=== PATIENT | male | born 1980 | race American Indian/Alaskan Native ===

== ENCOUNTER 2019-03-06 22:36 | Emergency (ER) | payer MEDICAID ==
[2019-03-07] MEDS ORDERED: KEPPRA 1,000 MG/NS 0.75% 100ML 1,000 MG/100 ML BAG IV ONE (00:24)
[2019-03-07] MEDS ORDERED: DILANTIN PO ONE (00:26)
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
[2019-03-07 00:55] VITALS: BP 114/74
== END 2019-03-07 02:40 | disposition home or self-care (01) ==
LOC: ED 22:36
DX: G40.909 Epilepsy, unspecified, not intractable, without status epilepticus (principal); F17.200 Nicotine dependence, unspecified, uncomplicated; Z91.013 Allergy to seafood
CPT/HCPCS: 36415; 80185; 96374; 99283; J1953

== ENCOUNTER 2019-04-21 07:00 | Emergency (ER) | payer MEDICAID | END 2019-04-21 08:10 | disposition left against medical advice (07) | LOC: ED 07:00 | DX: M25.511 Pain in right shoulder (principal); Z53.21 Procedure and treatment not carried out due to patient leaving prior to being seen by health care provider ==

== ENCOUNTER 2019-04-26 19:01 | Emergency (ER) | payer MEDICAID ==
--- NOTE | 2019-04-26 20:06 | Event Note ---
ED Screening Note ED Screening Note: had a fall on 04/21/19 c/o right shoulder pain never hurt before PMHx epilepsy no allergies to meds This initial assessment/diagnostic orders/clinical plan/treatment(s) is/are subject to change based on patients health status, clinical progression and re- assessment by fellow clinical providers in the ED. Further treatment and workup at subsequent clinical providers discretion. Patient/guardian urged not to elope from the ED as their condition may be serious if not clinically assessed and managed. Initial orders include: XR of the right shoulder
[2019-04-26 20:08] VITALS: BP 122/87
--- NOTE | 2019-04-26 20:49 | XRay Report ---
RIGHT SHOULDER 3 VIEWS. INDICATION / CLINICAL INFORMATION: right shoulder pain COMPARISON: None available. FINDINGS: BONES / JOINT(S): No acute fracture or subluxation. No significant arthritis. SOFT TISSUES: No significant abnormality. ADDITIONAL FINDINGS: None. Signer Name: Adilson Bishop MD Signed: 04/26/2019 8:45 PM Workstation Name: [id number]
[2019-04-26] MEDS ORDERED: IBUPROFEN PO ONE (21:31)
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
== END 2019-04-26 21:40 | disposition home or self-care (01) ==
LOC: ED 19:01
DX: S43.51XA Sprain of right acromioclavicular joint, initial encounter (principal); Z98.890 Other specified postprocedural states; Z79.899 Other long term (current) drug therapy; W18.30XA Fall on same level, unspecified, initial encounter; Y93.89 Activity, other specified; Y92.89 Other specified places as the place of occurrence of the external cause; Y99.8 Other external cause status
CPT/HCPCS: 99283

== ENCOUNTER 2019-08-07 19:24 | Emergency (ER) | payer MEDICAID ==
--- NOTE | 2019-08-07 20:06 | Emergency Department Report ---
Blank Doc - Documentation Documentation: I had no physical contact with this patient. I assigned myself when he was vis ible on the tracker however, per nursing pt never went into room as he got off the EMS stretcher and signed out AMA.
== END 2019-08-07 19:40 | disposition left against medical advice (07) ==
LOC: ED 19:24
DX: R56.9 Unspecified convulsions (principal); Z53.21 Procedure and treatment not carried out due to patient leaving prior to being seen by health care provider

== ENCOUNTER 2019-11-11 03:52 | Emergency (ER) | payer MEDICAID ==
[2019-11-11 04:03] VITALS: BP 126/87
[2019-11-11] MEDS ORDERED: traMADol 50 MG TAB PO ONE (06:02)
[2019-11-11] MEDS ORDERED: CYCLOBENZAPRINE 10 MG TAB ONE (06:02)
[2019-11-11] MEDS ORDERED: traMADol 50 MG TAB ONE (06:02)
[2019-11-11] MEDS ORDERED: CYCLOBENZAPRINE 10 MG TAB PO ONE (06:02)
== END 2019-11-11 06:38 | disposition left against medical advice (07) ==
LOC: ED 03:52
DX: M54.89 Other dorsalgia (principal); Z53.21 Procedure and treatment not carried out due to patient leaving prior to being seen by health care provider

== ENCOUNTER 2019-11-11 10:27 | Emergency (ER) | payer MEDICAID ==
[2019-11-11] MEDS ORDERED: levETIRAcetam 1000 MG/NS 0.75% 1,000 MG/100 ML BAG IV ONE ×2 (10:39→10:41)
[2019-11-11] MEDS ORDERED: DEXTROSE 50% IN WATER (25GM) 50 ML SYRINGE IV ONE (10:39)
[2019-11-11] MEDS ORDERED: ONDANSETRON 4 MG/2 ML INJ ONE (10:39)
[2019-11-11] MEDS ORDERED: ONDANSETRON 4 MG/2 ML INJ IV ONE (10:42)
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
[2019-11-11 10:52] VITALS: BP 111/60
[2019-11-11] MEDS ORDERED: PHENYTOIN 1,000 MG in SODIUM CHLORIDE 0.9% 250ML 250 ML IV ONE (11:00)
[2019-11-11 11:25] LABS: Basophils % (Auto) 0.2 % (0.0-1.8); Eosinophils # (Auto) 0.1 K/mm3 (0.0-0.4); Hematocrit 44.8 % (35.5-45.6); Hemoglobin 14.7 gm/dl (11.8-15.2); Lymphocytes # (Auto) 0.8 K/mm3 (1.2-5.4); Lymphocytes % (Auto) 11.6 % (13.4-35.0); Mean Corpuscular HGB Conc 33 % (32-34); Mean Corpuscular Volume 91 fl (84-94); Monocytes # (Auto) 0.5 K/mm3 (0.0-0.8); Monocytes % (Auto) 8.2 % (0.0-7.3); Platelet Count 146 K/mm3 (140-440); Red Blood Count 4.92 M/mm3 (3.65-5.03); Red Cell Distribution Width 13.8 % (13.2-15.2)
[2019-11-11 11:47] LABS: BUN/Creatinine Ratio 11; Blood Urea Nitrogen 9 mg/dL (9-20); Calcium 8.9 mg/dL (8.4-10.2); Hemolysis Index 18
[2019-11-11 12:21] LABS: Bacteria,Urine 1+ /HPF (Negative); Bilirubin,Urine NEG (Negative); Blood,Urine NEG (Negative); Color,Urine Straw (Yellow); Mucus,Urine FEW /HPF; Urobilinogen,Urine < 2.0 mg/dL (<2.0)
--- NOTE | 2019-11-11 15:06 | Cat Scan Report ---
CT head without contrast INDICATION : headache. TECHNIQUE: Axial imaging performed from the skull apex through the skull base without the use of con trast. All CT scans at this location are performed using CT dose reduction for ALARA by means of aut omated exposure control. COMPARISON: CT head from 09/03/2018 FINDINGS: Parenchyma: No acute intracranial hemorrhage or parenchymal abnormality. Ventricles: Ventricles are normal in size and appear symmetric. Soft tissues: Soft tissues including the orbits appear normal. Bones: No acute osseous abnormality. Sinuses: Sinuses and mastoid air cells are clear. IMPRESSION: No acute abnormality. Signer Name: Mckinley Almanzar MD Signed: 11/11/2019 3:02 PM Workstation Name: [id number]
--- NOTE | 2019-11-11 15:20 | XRay Report ---
RIGHT SHOULDER 3 VIEWS INDICATION / CLINICAL INFORMATION: R shoulder pain COMPARISON: 04/26/2019. 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 Negative for acute bony injury. Heter otopic ossification/calcification has developed along the undersurface of the distal clavicle. No sig nificant arthritis at the glenohumeral joint. SOFT TISSUES: No significant abnormality. ADDITIONAL FINDINGS: None. Signer Name: Adilson Bishop MD Signed: 11/11/2019 3:16 PM Workstation Name: [id number]
[2019-11-11] MEDS ORDERED: IBUPROFEN 600 MG TAB PO ONE ×2 (15:39→15:43)
== END 2019-11-11 15:45 | disposition home or self-care (01) ==
LOC: ED 10:27
DX: S40.011A Contusion of right shoulder, initial encounter (principal); S09.90XA Unspecified injury of head, initial encounter; R56.9 Unspecified convulsions; F17.200 Nicotine dependence, unspecified, uncomplicated; Z91.013 Allergy to seafood; X58.XXXA Exposure to other specified factors, initial encounter; Y93.89 Activity, other specified; Y92.89 Other specified places as the place of occurrence of the external cause; Y99.8 Other external cause status
CPT/HCPCS: 36415; 70450; 73030; 80048; 81001; 82962; 85025; 87086; 96365; 96368; 96375; 99285; J1165; J1953; J2405; J7050

== ENCOUNTER 2020-06-09 17:52 | Emergency (ER) | payer MEDICAID | END 2020-06-09 18:10 | disposition left against medical advice (07) | LOC: ED 17:52 | DX: G40.909 Epilepsy, unspecified, not intractable, without status epilepticus (principal); Z53.21 Procedure and treatment not carried out due to patient leaving prior to being seen by health care provider ==

== ENCOUNTER 2021-05-15 11:52 | Emergency (ER) | payer MEDICAID | END 2021-05-15 16:00 | disposition left against medical advice (07) | LOC: ED 11:52 | DX: M25.519 Pain in unspecified shoulder (principal); Z53.21 Procedure and treatment not carried out due to patient leaving prior to being seen by health care provider ==

== ENCOUNTER 2021-06-23 15:40 | Emergency (ER) | payer MEDICAID ==
[2021-06-23 15:53] VITALS: BP 136/80
[2021-06-23] MEDS ORDERED: PHENYTOIN 100 MG CAPSULE.ER PO ONE (18:05)
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
[2021-06-23 18:28] LABS: Basophils % (Auto) 0.2 % (0.0-1.8); Eosinophils # (Auto) 0.6 K/mm3 (0.0-0.4); Eosinophils % (Auto) 4.6 % (0.0-4.3); Hematocrit 45.1 % (35.5-45.6); Hemoglobin 15.2 gm/dl (11.8-15.2); Lymphocytes # (Auto) 1.1 K/mm3 (1.2-5.4); Lymphocytes % (Auto) 8.8 % (13.4-35.0); Mean Corpuscular HGB Conc 34 % (32-34); Mean Corpuscular Volume 90 fl (84-94); Monocytes # (Auto) 0.8 K/mm3 (0.0-0.8); Platelet Count 198 K/mm3 (140-440); Red Blood Count 5.02 M/mm3 (3.65-5.03); Red Cell Distribution Width 13.8 % (13.2-15.2)
[2021-06-23 18:51] LABS: Alanine Aminotransferase 12 units/L (7-56); Albumin 4.4 g/dL (3.9-5); BUN/Creatinine Ratio 17; Blood Urea Nitrogen 15 mg/dL (9-20); Calcium 9.4 mg/dL (8.4-10.2); Hemolysis Index 20
== END 2021-06-23 19:04 | disposition home or self-care (01) ==
LOC: ED 15:40
DX: S01.112A Laceration without foreign body of left eyelid and periocular area, initial encounter (principal); T14.8XXA Other injury of unspecified body region, initial encounter; R56.9 Unspecified convulsions; Z91.14 Patient's other noncompliance with medication regimen; R89.2 Abnormal level of other drugs, medicaments and biological substances in specimens from other organs, systems and tissues; Z98.890 Other specified postprocedural states; F17.200 Nicotine dependence, unspecified, uncomplicated; Z91.013 Allergy to seafood; X58.XXXA Exposure to other specified factors, initial encounter; Y93.89 Activity, other specified; Y92.89 Other specified places as the place of occurrence of the external cause; Y99.8 Other external cause status
CPT/HCPCS: 36415; 80053; 80185; 85025; 99283

== ENCOUNTER 2021-07-19 04:07 | Emergency (ER) | payer MEDICAID ==
[2021-07-19] MEDS ORDERED: methylPREDNISolone Sod Succinate 125 MG/2 ML INJ IM ONE (04:39)
[2021-07-19] MEDS ORDERED: IPRATROPIUM/ALBUTEROL SULFATE 3 ML AMPUL.NEB IH ONE (04:39)
[2021-07-19] MEDS ORDERED: ONDANSETRON 4 MG ODT TAB PO ONE (04:39)
[2021-07-19] MEDS ORDERED: ACETAMINOPHEN 500 MG TAB PO ONE (04:39)
[2021-07-19] MEDS ORDERED: IBUPROFEN 600 MG TAB PO ONE (04:40)
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
[2021-07-19 05:47] VITALS: BP 118/77
--- NOTE | 2021-07-20 06:59 | XRay Report ---
CHEST 2 VIEWS INDICATION / CLINICAL INFORMATION: COUGH, WHEEZING STUDY TIME: 0506 COMPARISON: None available. FINDINGS: SUPPORT DEVICES: None. HEART / MEDIASTINUM: No significant abnormality. LUNGS / PLEURA: No significant acute pulmonary or pleural abnormality. No pneumothorax. ADDITIONAL FINDINGS: No significant additional findings. Signer Name: Hamzah Brown MD Signed: 07/20/2021 6:54 AM Workstation Name: [id number]
== END 2021-07-19 07:12 | disposition home or self-care (01) ==
LOC: ED 04:07
DX: J01.90 Acute sinusitis, unspecified (principal); B96.89 Other specified bacterial agents as the cause of diseases classified elsewhere; J06.9 Acute upper respiratory infection, unspecified; J20.9 Acute bronchitis, unspecified; R11.2 Nausea with vomiting, unspecified; R56.9 Unspecified convulsions; Z98.890 Other specified postprocedural states; Z91.013 Allergy to seafood
CPT/HCPCS: 71046; 94640; 96372; 99283; J2930; Q0162

== ENCOUNTER 2021-08-22 23:20 | Emergency (ER) | payer OTHER, MEDICAID ==
[2021-08-22 23:30] VITALS: BP 142/93
[2021-08-22] MEDS ORDERED: ACETAMINOPHEN 325 MG TAB PO ONE (23:45)
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
[2021-08-22] MEDS ORDERED: PHENYTOIN 100 MG CAPSULE.ER PO ONE (23:51)
== END 2021-08-23 01:47 ==
LOC: ED 23:20
DX: G40.909 Epilepsy, unspecified, not intractable, without status epilepticus (principal); Z91.013 Allergy to seafood; Z79.899 Other long term (current) drug therapy; V89.2XXA Person injured in unspecified motor-vehicle accident, traffic, initial encounter; Y93.89 Activity, other specified; Y92.488 Other paved roadways as the place of occurrence of the external cause; Y99.8 Other external cause status
CPT/HCPCS: 99282

== ENCOUNTER 2021-09-21 06:29 | Emergency (ER) | payer MEDICAID ==
[2021-09-21 06:37] VITALS: BP 150/86
[2021-09-21] MEDS ORDERED: HYDROmorphone 1 MG/1 ML INJ IM ONE (08:46)
[2021-09-21] MEDS ORDERED: KETOROLAC 60 MG/2 ML INJ IM ONE (08:46)
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
== END 2021-09-21 09:47 | disposition home or self-care (01) ==
LOC: ED 06:29
DX: G89.18 Other acute postprocedural pain (principal); M79.604 Pain in right leg; Z91.013 Allergy to seafood; Z79.899 Other long term (current) drug therapy
CPT/HCPCS: 96372; 99282; J1170; J1885

== ENCOUNTER 2021-10-01 16:11 | Emergency (ER) | payer MEDICAID ==
[2021-10-01] MEDS ORDERED: oxyCODONE /ACETAMINOPHEN 5-325MG TAB PO ONE (18:34)
[2021-10-01] MEDS ORDERED: cephALEXin 500 MG CAP PO ONE (18:34)
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
== END 2021-10-01 20:05 | disposition home or self-care (01) ==
LOC: ED 16:11
DX: S82.202A Unspecified fracture of shaft of left tibia, initial encounter for closed fracture (principal); S82.402A Unspecified fracture of shaft of left fibula, initial encounter for closed fracture; T84.293A Other mechanical complication of internal fixation device of bones of foot and toes, initial encounter; G89.18 Other acute postprocedural pain; Z91.013 Allergy to seafood; Z79.899 Other long term (current) drug therapy; X58.XXXA Exposure to other specified factors, initial encounter; Y93.89 Activity, other specified; Y92.89 Other specified places as the place of occurrence of the external cause; Y99.8 Other external cause status
CPT/HCPCS: 99283

== ENCOUNTER 2021-10-07 21:55 | Emergency (ER) | payer MEDICAID | END 2021-10-07 22:47 | disposition left against medical advice (07) | LOC: ED 21:55 | DX: Z00.00 Encounter for general adult medical examination without abnormal findings (principal); Z53.21 Procedure and treatment not carried out due to patient leaving prior to being seen by health care provider; W18.39XA Other fall on same level, initial encounter; Y93.89 Activity, other specified; Y92.89 Other specified places as the place of occurrence of the external cause; Y99.8 Other external cause status ==

== ENCOUNTER 2021-10-09 07:15 | Observation (INO) | payer MEDICAID ==
[~2021-10-09 07:15] MED LIST: BACTERIOSTATIC SODIUM CHLORIDE 0.9% 30 ML VIAL INFILTRATI ONE; ceFAZolin/STERILE WATER 2 GM/20 ML SYRINGE IV NR
[2021-10-09] MEDS: LACTATED RINGERS 1,000 ML IV SCH ×2 (07:24→20:06)
[2021-10-09] MEDS ORDERED: ONDANSETRON 4 MG/2 ML INJ IV PRN (07:35)
[2021-10-09] MEDS ORDERED: HYDROmorphone 1 MG/1 ML INJ IV PRN (07:35)
[2021-10-09] MEDS ORDERED: fentaNYL 100 MCG/2 ML INJ IV NR (07:57)
[2021-10-09] MEDS ORDERED: MIDAZOLAM 2 MG/2 ML INJ IV NR (08:00)
--- NOTE | 2021-10-09 08:00 | Anesthesia Consultation ---
Anesthesia Consult and Med Hx - Airway Anesthetic Teeth Evaluation: Good ROM Head & Neck: Adequate Mental/Hyoid Distance: Adequate Mallampati Class: Class II Intubation Access Assessment: Good - Pre-Operative Health Status ASA Pre-Surgery Classification: ASA2 Proposed Anesthetic Plan: General Nerve Block: Pop - Pulmonary Hx Smoking: Yes (1-2 CIGARS PER DAY/ DAILY THC) Hx Asthma: No Hx Respiratory Symptoms: No COPD: No Hx Pneumonia: No Hx Sleep Apnea: Yes (DX SLEEP APNEA , NO CPAP) - Cardiovascular System Hx Hypertension: No Hx Heart Attack/AMI: No - Central Nervous System Hx Seizures: Yes CVA: No - Endocrine Hx Renal Disease: No Hx End Stage Renal Disease: No Hx Liver Disease: No Hx Insulin Dependent Diabetes: No Hx Non-Insulin Dependent Diabetes: No Hx Thyroid Disease: No - Hematic Hx Anemia: No - Other Systems Hx Substance Use: Yes (MARIJUANA2-3X PER DAY) Hx Cancer: No Hx Obesity: No - Additional Comments Anesthesia Medical History Comments: Was here [id number]
--- NOTE | 2021-10-09 08:00 | Anesthesia Day of Surgery ---
Anesthesia Day of Surgery - Day of Surgery Patient Examined: Yes Patient H&P Reviewed: Yes Patient is NPO: Yes
[2021-10-09] MEDS ORDERED: MIDAZOLAM 5 MG/5 ML INJ MDV IV ONE (08:01)
[2021-10-09] MEDS ORDERED: BUPIVACAINE/PF (0.25%) 2.5 MG/ML 30 ML VIAL INFILTRATI ONE (08:02)
[2021-10-09] MEDS ORDERED: dexAMETHasone 4 MG/ML VIAL ONE (08:02)
[2021-10-09] MEDS ORDERED: BUPIVACAINE/PF (0.5%) 5 MG/1 ML 30 ML VIAL INFILTRATI ONE (08:02)
[2021-10-09] MEDS ORDERED: LIDOCAINE MPF (2%) 20 MG/1 ML VIAL 5 ML ONE (10:03)
[2021-10-09] MEDS ORDERED: fentaNYL 100 MCG/2 ML INJ ONE ×2 (10:08→12:00)
[2021-10-09] MEDS ORDERED: propofoL 200 MG/20 ML VIAL IV ONE (10:08)
[2021-10-09] MEDS ORDERED: ONDANSETRON 4 MG/2 ML INJ ONE (10:33)
[2021-10-09] MEDS ORDERED: dexAMETHasone 20 MG/5 ML VIAL ONE (10:33)
[2021-10-09] MEDS ORDERED: SODIUM CHLORIDE 0.9% IRR 1,500 ML BOTTLE IR ONE (10:51)
[2021-10-09] MEDS ORDERED: PHENYLEPHRINE/NS 1,000 MCG/10 ML SYRINGE (OR USE) IV ONE (10:59)
[2021-10-09] MEDS ORDERED: WATER FOR IRRIG STERILE 1,500 ML BOTTLE IR ONE (14:12)
[2021-10-09] MEDS: HYDROmorphone 1 MG/1 ML INJ IV PRN ×4 (14:32→18:58)
--- NOTE | 2021-10-09 14:34 | Procedure Note ---
Date of procedure: 10/09/21 Pre-op diagnosis: Open fracture right tib-fib Post-op diagnosis: same Procedure: Removal of external fixator followed by open reduction internal fixation right tibia and fibula Procedure The patient was brought to the OR and placed in the OR table in supine position following induction with MAC anesthesia. Portions of the external fixator was removed that being the kickstand apparatus, the patient's right lower extremity was then prepped and draped in the usual sterile manner. A timeout procedure was done to identify the patient and the correct operative site. The leg was then elevated for approximately 1 minute followed by inflation of the pneumatic tourniquet to 300 mmHg. Attention was turned to the fibular fracture with the external fixator still intact a lateral incision was made along the distal fibula this is then taken down sharply through skin subcu the fracture was identified there was early callus formation which was then taken down using combination of rongeurs and curettes patient was noted to have slight overriding of about 2 to 3 mm using a small sawblade the ends were approximated and a seven hole plate applied with screws of various lengths and AP and lateral views obtained showing good reduction of the fibula fracture.. Next the anteromedial incision was made along the distal 3rd portion of the tibia this is then taken down sharply through skin subcu which brought us upon the fracture site patient was noted to have moderate amount of comminution noted in the distal tibia using combination of curette and rongeurs the early callus formation was debrided from the fracture ends the fracture fragments were then reapproximated and held by way of a bone clamp interfragmentary screw fixation was used on the most proximal butterfly fragment this was then followed by application of the and to lateral locked plate the plate was stabilized initially with a a K wire AP and lateral films were obtained showing good reduction of the fracture and placement of the hardware following this screws of various lengths were used to stabilize the antromedial plate care was taken to reduce the posterior fragment next the wound was copiously irrigated due to the extensive comminution noted earlier allograft bone was then packed within the wound to aid in fracture healing next the wound was copiously irrigated and was closed in a standard routine fashion postop dressings were applied patient tolerated the procedure there were no complications he was sent to postanesthesia recovery in a stable condition Anesthesia: BRITTNEE CELESTIN, regional Surgeon: OSVALDO LUIS (Tej Akers. 1st assist) Estimated blood loss: minimal Pathology: none Condition: stable Disposition: PACU
--- NOTE | 2021-10-09 15:44 | XRay Report ---
INTRAOPERATIVE FLUOROSCOPY: RIGHT ANKLE INDICATION / CLINICAL INFORMATION: RT TIB/FIB FX/ TIB/FIB PLATE AND SCREWS. TECHNIQUE: Intraoperative spot images were obtained during the procedure. FINDINGS: Patient is status post plate screw fixation of the right distal tibia for a comminuted fracture. Hard graham appears well seated. Fluoroscopy Time: 38 seconds. Fluoroscopy Images: 3. Signer Name: Justin Peters DO Signed: 10/09/2021 3:40 PM Workstation Name: [id number]
--- NOTE | 2021-10-09 17:11 | Post Anesthesia Evaluation ---
- Post Anesthesia Evaluation Patient Participated: Yes Airway Patent: Yes Stable Respiratory Function: Yes Nausea/Vomiting: No Temp > 96.8F: Yes Pain Manageable: Yes Adequeate Hydration: Yes Anesthesia Complications: No Block Receding Appropriately: Yes Patient on Ventilator: No
[2021-10-09] MEDS: MORPHINE 2 MG/1 ML INJ IV PRN (20:55)
[2021-10-10] MEDS: MORPHINE 4 MG/1 ML INJ IV PRN ×5 (02:12→22:04)
[2021-10-10] MEDS: KETOROLAC 30 MG/1 ML INJ IV PRN ×3 (04:02→19:40)
[2021-10-10] MEDS: LACTATED RINGERS 1,000 ML IV SCH ×2 (04:06→14:00)
[2021-10-10] MEDS: MORPHINE 2 MG/1 ML INJ IV PRN (05:17)
[2021-10-10] MEDS: ACETAMINOPHEN 325 MG TAB PO PRN (20:24)
[2021-10-11] MEDS: MORPHINE 4 MG/1 ML INJ IV PRN ×4 (02:05→21:37)
[2021-10-11] MEDS: LACTATED RINGERS 1,000 ML IV SCH ×3 (02:05→21:41)
[2021-10-11] MEDS: ACETAMINOPHEN 325 MG TAB PO PRN (03:50)
[2021-10-11] MEDS: KETOROLAC 30 MG/1 ML INJ IV PRN ×2 (05:39→11:55)
--- NOTE | 2021-10-11 08:46 | XRay Report ---
CHEST 1 VIEW INDICATION: fever and cough. COMPARISON: 07/19/2021 FINDINGS: Support devices: None. Heart: Normal. Lungs/Pleura: No acute pulmonary or pleural findings. IMPRESSION: 1. No acute findings. Signer Name: Ramon Rollins MD Signed: 10/11/2021 8:41 AM Workstation Name: [id number]
[2021-10-11 11:23] LABS: Bilirubin,Urine NEG (Negative); Blood,Urine NEG (Negative); Color,Urine Yellow (Yellow); Mucus,Urine 3+ /HPF; Protein,Urine <15 mg/dL mg/dL (Negative); Urobilinogen,Urine < 2.0 mg/dL (<2.0)
[2021-10-12] MEDS: MORPHINE 4 MG/1 ML INJ IV PRN ×5 (01:24→21:02)
[2021-10-12] MEDS: KETOROLAC 30 MG/1 ML INJ IV PRN (11:00)
[2021-10-13] MEDS: KETOROLAC 30 MG/1 ML INJ IV PRN ×3 (00:04→23:43)
[2021-10-13] MEDS: MORPHINE 4 MG/1 ML INJ IV PRN ×3 (04:47→21:37)
[2021-10-13] MEDS: MORPHINE 2 MG/1 ML INJ IV PRN (17:27)
[2021-10-14] MEDS: MORPHINE 4 MG/1 ML INJ IV PRN (03:22)
[2021-10-14] MEDS: MORPHINE 2 MG/1 ML INJ IV PRN ×3 (08:40→17:40)
--- NOTE | 2021-10-14 18:45 | Discharge Summary ---
Providers - Providers Date of Admission: 10/09/21 14:28 Date of discharge: 10/14/21 Attending physician: OSVALDO LUIS MD 10/09/21 14:28 Consult to Case Management [CONS] Routine Services Needed at Discharge: Other Notified:: Yes Phone number called:: [phone] Additional Physician Instructions: Assess Discharge needs. Physical Therapy Evaluation and Treat [CONS] Routine Comment: Reason For Exam: Eval and treat Weight bearing status?: Toe touch Assistive devices?: Yes If so list: Crutches 10/14/21 15:39 Physical Therapy Evaluation and Treat [CONS] Routine Comment: Reason For Exam: Outpatient Physical Therapy Primary care physician: [employer]EARCH[facility] Hospitalization Condition: Stable Hospital course: Following admission he was taken to the operating room where the external fixator was removed and plate fixation applied to both fibular and tibial fracture segments. Post op admitted for pain management and physical therapy evaluation. Unfortunately patient lost to follow up for several days in the hospital due my own health issues requiring admission to other healthcare facility. Eventually I was notified and ordered discharge for this patient. He will be f/u as outpatient in our office 1-2 wks Disposition: 01 HOME / SELF CARE / HOMELESS Final Discharge Diagnosis (Prints w/discharge instructions): open fracture right leg, s/p ORIF right tibia and fibular Core Measure Documentation - Palliative Care Palliative Care/ Comfort Measures: Not Applicable - Core Measures Any of the following diagnoses?: none - VTE Discharge Requirements Deep Vein Thrombosis/Pulmonary Embolism Present on Admission: No Has pt received <5 days of overlap therapy or INR<2.0: No Anticoagulant overlap therapy prescribed at discharge: No Contraindication No Overlap Therapy order at DC: Medical Contraindication - Acute MT Discharge Requirements Aspirin at discharge: No Reason for no aspirin on DC: Medical contraindication - Heart Failure Discharge Requirements WILMAN/ARB for LVSD if EF <40%: No Reason for no WILMAN/ARB: Medical contraindication - Stroke Discharge Requirements Statin for LDL = or >70 mg/dl on DC: Not Applicable Exam - Constitutional Vitals: Temp Pulse Resp BP Pulse Ox 98.8 F 77 18 105/69 98 10/14/21 04:40 10/14/21 04:40 10/14/21 04:40 10/14/21 04:40 10/14/21 17:50 Plan Activity: advance as tolerated Weight Bearing Status: Partial Weight Bearing Diet: regular Wound: keep clean and dry Special Instructions: physical therapy Durable Medical Equipment Needed Upon Discharge: Crutches Follow up with: PRIMARY CARE, [Primary Care Provider] - 7 Days Prescriptions: cephALEXin [Keflex] 500 mg PO Q12HR #20 cap oxyCODONE /ACETAMINOPHEN [Percocet 5/325] 1 tab PO Q6HR PRN #24 tablet PRN Reason: Pain
[2021-10-14 18:49] VITALS: BP 113/76
== END 2021-10-14 19:43 | disposition home or self-care (01) ==
LOC: OR 07:15 → 4A 14:28 → 3A 10-11 20:40
PROVIDERS: ADMIT Orthopaedic Surgery; ATTEND Orthopaedic Surgery
DX: U07.1 COVID-19 (principal); S82.251A Displaced comminuted fracture of shaft of right tibia, initial encounter for closed fracture; M25.571 Pain in right ankle and joints of right foot; F17.210 Nicotine dependence, cigarettes, uncomplicated; Z79.899 Other long term (current) drug therapy; Z98.890 Other specified postprocedural states; W01.0XXA Fall on same level from slipping, tripping and stumbling without subsequent striking against object, initial encounter; Y93.02 Activity, running; Y92.488 Other paved roadways as the place of occurrence of the external cause; Y99.8 Other external cause status
CPT/HCPCS: 27758; 36415; 64450; 71045; 73600; 81001; 87040; 87086; 96374; 96375; 96376; 97162; 99406; C1713; G0378; J0690; J1100; J1170; J1885; J2250; J2270; J2405; J2704; J3010; J3490; J7120; U0003; J2370

== ENCOUNTER → 2021-10-20 | Emergency (ER) | payer MEDICAID | LOC: ED 17:44 | DX: M25.571 Pain in right ankle and joints of right foot (principal); Z53.21 Procedure and treatment not carried out due to patient leaving prior to being seen by health care provider ==

== ENCOUNTER 2021-10-21 06:38 | Emergency (ER) | payer MEDICAID ==
[2021-10-21 06:42] VITALS: BP 120/86
[2021-10-21] MEDS ORDERED: HYDROcodone/ACETAMINOPHEN 5-325 MG TAB PO ONE (10:38)
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
--- NOTE | 2021-10-21 11:20 | XRay Report ---
Right ankle 3 views INDICATION: Postop FINDINGS: Postoperative changes with hardware in place within the tibia and fibula. Comminuted fractu re deformities within the distal tibia are noted. No significant callus formation or healing is seen in this time. Diffuse soft tissue swelling. Right foot 3 views INDICATION: Pain FINDINGS: MTP joints appear normal. Midfoot alignment appears normal. No displaced fracture. Signer Name: Eric Stephen MD Signed: 10/21/2021 11:16 AM Workstation Name: [id number]
== END 2021-10-21 12:20 | disposition home or self-care (01) ==
LOC: ED 06:38
DX: G89.18 Other acute postprocedural pain (principal); Z91.013 Allergy to seafood
CPT/HCPCS: 99283

== ENCOUNTER 2021-12-17 12:44 | Outpatient (CLI) | payer MEDICAID ==
--- NOTE | 2021-12-17 16:46 | XRay Report ---
RIGHT ANKLE 3 VIEW(S) INDICATION / CLINICAL INFORMATION: RIGHT ANKLE PAIN COMPARISON: 10/21/21 FINDINGS: BONES / JOINT(S): Anterior side plate fixation of comminuted distal right tibia fracture and lateral side plate fixation of distal fibular shaft fracture appear unchanged. There has been interval minima l development of internal callus formation. Extruded fracture fragment posterior to the distal tibia is unchanged. No acute osseous abnormality. Mild tibiotalar joint space narrowing especially laterall y. SOFT TISSUES: Mild bimalleolar ankle soft tissue swelling. ADDITIONAL FINDINGS: None. IMPRESSION: 1. Minimal interval callus formation at the site of distal tibial and fibular fracture status post si deplate fixation. Signer Name: Rose Elliott MD Signed: 12/17/2021 4:42 PM Workstation Name: [email or web address]
--- NOTE | 2021-12-17 16:47 | XRay Report ---
LEFT TIBIA-FIBULA 2 VIEW(S) INDICATION / CLINICAL INFORMATION: S82.251 leg pain. COMPARISON: None available. FINDINGS: BONES / JOINT(S): No acute fracture or subluxation. No significant arthritis. SOFT TISSUES: No significant abnormality. ADDITIONAL FINDINGS: None. Signer Name: Rose Elliott MD Signed: 12/17/2021 4:42 PM Workstation Name: [email or web address]
== END 2021-12-17 12:45 | disposition home or self-care (01) ==
LOC: XRAY 12:44
PROVIDERS: ATTEND Orthopaedic Surgery
DX: S82.251A Displaced comminuted fracture of shaft of right tibia, initial encounter for closed fracture (principal); M79.89 Other specified soft tissue disorders; M79.604 Pain in right leg; X58.XXXA Exposure to other specified factors, initial encounter; Y93.89 Activity, other specified; Y92.89 Other specified places as the place of occurrence of the external cause

== ENCOUNTER 2021-12-24 09:39 | Outpatient (CLI) | payer MEDICAID ==
[2021-12-24] MEDS ORDERED: LIDOCAINE (4%) 40 MG/ML TOPICAL SOLN 50 ML BOTTLE TP ONE (10:33)
== END 2021-12-24 09:40 | disposition home or self-care (01) ==
LOC: WOUND 09:39
PROVIDERS: ATTEND Surgery
DX: S81.801A Unspecified open wound, right lower leg, initial encounter (principal); F41.9 Anxiety disorder, unspecified; F32.A Depression, unspecified; F17.200 Nicotine dependence, unspecified, uncomplicated; F12.90 Cannabis use, unspecified, uncomplicated; Z79.899 Other long term (current) drug therapy; W17.2XXA Fall into hole, initial encounter; Y93.89 Activity, other specified; Y92.89 Other specified places as the place of occurrence of the external cause; Y99.8 Other external cause status

== ENCOUNTER 2022-01-07 11:03 | Outpatient (CLI) | payer MEDICAID ==
[2022-01-07] MEDS ORDERED: LIDOCAINE (4%) 40 MG/ML TOPICAL SOLN 50 ML BOTTLE TP ONE ×2 (14:00→18:35)
== END 2022-01-07 11:04 | disposition home or self-care (01) ==
LOC: WOUND 11:03
PROVIDERS: ATTEND Surgery
DX: S81.801D Unspecified open wound, right lower leg, subsequent encounter (principal); F41.9 Anxiety disorder, unspecified; F32.A Depression, unspecified; F17.200 Nicotine dependence, unspecified, uncomplicated; F12.90 Cannabis use, unspecified, uncomplicated; Z79.899 Other long term (current) drug therapy; Z90.49 Acquired absence of other specified parts of digestive tract; W17.2XXD Fall into hole, subsequent encounter

== ENCOUNTER 2022-01-09 12:27 | Outpatient (CLI) | payer MEDICAID ==
--- NOTE | 2022-01-09 14:44 | XRay Report ---
Right leg-4 views INDICATION: PAIN IN LOWER LEG. COMPARISON: Right ankle series from 12/17/2021 IMPRESSION: Comminuted distal tibial diametaphyseal and distal fibular diaphyseal fractures are dowd sfixed by malleable plates with satisfactory alignment; however, there is incomplete healing with at least 50% residual fracture lucency. There is some internal callus formation since the November exam. There is also persistent inferomedial talar tilt and mild surrounding soft tissue swelling. Underly ing mild degenerative changes are present in the hindfoot, midfoot, and in the knee. Signer Name: Mckinley Almanzar MD Signed: 01/09/2022 2:40 PM Workstation Name: [id number]
== END 2022-01-09 12:28 | disposition home or self-care (01) ==
LOC: XRAY 12:27
PROVIDERS: ATTEND Orthopaedic Surgery
DX: S82.251A Displaced comminuted fracture of shaft of right tibia, initial encounter for closed fracture (principal); M79.89 Other specified soft tissue disorders; M19.071 Primary osteoarthritis, right ankle and foot; X58.XXXA Exposure to other specified factors, initial encounter; Y93.89 Activity, other specified; Y92.89 Other specified places as the place of occurrence of the external cause; Y99.8 Other external cause status

== ENCOUNTER 2022-01-14 17:46 | Emergency (ER) | payer MEDICAID ==
[2022-01-14 18:20] VITALS: BP 118/88
== END 2022-01-14 20:00 | disposition left against medical advice (07) ==
LOC: ED 17:46
DX: R11.2 Nausea with vomiting, unspecified (principal); Z53.21 Procedure and treatment not carried out due to patient leaving prior to being seen by health care provider

== ENCOUNTER → 2022-01-14 | Emergency (ER) | payer MEDICAID | LOC: ED 09:14 | DX: R10.9 Unspecified abdominal pain (principal); R11.2 Nausea with vomiting, unspecified; Z53.21 Procedure and treatment not carried out due to patient leaving prior to being seen by health care provider ==

== ENCOUNTER 2022-01-21 12:58 | Outpatient (CLI) | payer MEDICAID ==
[2022-01-21] MEDS ORDERED: SILVER NITRATE APPLICATOR 1 EA TP SCH (13:22)
[2022-01-21] MEDS ORDERED: LIDOCAINE (4%) 40 MG/ML TOPICAL SOLN 50 ML BOTTLE TP SCH (14:00)
== END 2022-01-21 12:59 | disposition home or self-care (01) ==
LOC: WOUND 12:58
PROVIDERS: ATTEND Surgery
DX: S81.801D Unspecified open wound, right lower leg, subsequent encounter (principal); S81.801A Unspecified open wound, right lower leg, initial encounter; S81.802A Unspecified open wound, left lower leg, initial encounter; F17.200 Nicotine dependence, unspecified, uncomplicated; F12.90 Cannabis use, unspecified, uncomplicated; Z79.899 Other long term (current) drug therapy; Z90.49 Acquired absence of other specified parts of digestive tract; W17.2XXD Fall into hole, subsequent encounter; X58.XXXA Exposure to other specified factors, initial encounter; Y93.89 Activity, other specified; Y92.89 Other specified places as the place of occurrence of the external cause; Y99.8 Other external cause status
CPT/HCPCS: 17250

== ENCOUNTER 2022-02-14 05:51 | Observation (INO) | payer MEDICAID ==
[2022-02-14] MEDS ORDERED: GABAPENTIN 300 MG CAP PO SCH (06:00)
[2022-02-14] MEDS ORDERED: MIDAZOLAM 2 MG/2 ML INJ IV SCH (06:00)
[2022-02-14] MEDS ORDERED: ACETAMINOPHEN 500 MG TAB PO SCH (06:00)
[2022-02-14] MEDS ORDERED: LACTATED RINGERS 1,000 ML IV SCH (06:00)
[2022-02-14] MEDS ORDERED: LIDOCAINE PF 100 MG/5 ML (CARDIAC SYRINGE) IV ONE (07:24)
[2022-02-14] MEDS ORDERED: ONDANSETRON 4 MG/2 ML INJ ONE (07:24)
[2022-02-14] MEDS ORDERED: fentaNYL 100 MCG/2 ML INJ ONE (07:24)
[2022-02-14] MEDS ORDERED: dexAMETHasone 20 MG/5 ML VIAL ONE (07:24)
[2022-02-14] MEDS ORDERED: propofoL 200 MG/20 ML VIAL IV ONE (07:25)
--- NOTE | 2022-02-14 07:27 | Anesthesia Consultation ---
Anesthesia Consult and Med Hx Date of service: 02/14/22 - Airway Anesthetic Teeth Evaluation: Good ROM Head & Neck: Adequate Mental/Hyoid Distance: Adequate Mallampati Class: Class I Intubation Access Assessment: Probably Good - Pre-Operative Health Status ASA Pre-Surgery Classification: ASA3 Proposed Anesthetic Plan: General - Pulmonary Hx Smoking: Yes Hx Respiratory Symptoms: No - Cardiovascular System Hx Hypertension: No Hx Heart Attack/AMI: No - Central Nervous System Hx Seizures: Yes (will give home dose keppra in preop) CVA: No - Endocrine Hx Renal Disease: No Hx Liver Disease: No Hx Insulin Dependent Diabetes: No Hx Non-Insulin Dependent Diabetes: No Hx Thyroid Disease: No - Hematic Hx Anemia: No - Other Systems Hx Substance Use: Yes (THC) - Additional Comments Anesthesia Medical History Comments: No hx anesthetic complications.
--- NOTE | 2022-02-14 07:28 | Anesthesia Day of Surgery ---
Anesthesia Day of Surgery - Day of Surgery Patient Examined: Yes Patient H&P Reviewed: Yes Patient is NPO: Yes
[2022-02-14] MEDS ORDERED: ceFAZolin/Water 2 GM/20 ML 2 GM/20 ML SYRINGE IV NR (08:00)
[2022-02-14] MEDS ORDERED: oxyCODONE /ACETAMINOPHEN 5-325MG TAB PO PRN (08:00)
[2022-02-14] MEDS ORDERED: HYDROmorphone 1 MG/1 ML INJ IV PRN (08:00)
[2022-02-14] MEDS ORDERED: levETIRAcetam 500 MG TAB PO SCH (08:00)
[2022-02-14] MEDS ORDERED: ePHEDrine SULFATE 50 MG/1 ML INJ ONE (08:34)
[2022-02-14] MEDS ORDERED: BUPIVACAINE/PF (0.5%) 5 MG/1 ML 30 ML VIAL INFILTRATI ONE ×2 (08:37→08:44)
[2022-02-14] MEDS ORDERED: KETOROLAC 30 MG/1 ML INJ ONE (09:21)
[2022-02-14] MEDS ORDERED: methylPREDNISolone ACETATE 40 MG/1 ML INJ ONE ×2 (09:39)
[2022-02-14] MEDS ORDERED: LIDOCAINE (2%) 20 MG/1 ML VIAL 20 ML MDV INFILTRATI ONE (09:40)
[2022-02-14] MEDS ORDERED: KETOROLAC 30 MG/1 ML INJ IV PRN (09:46)
[2022-02-14] MEDS ORDERED: SODIUM CHLORIDE 0.9% IRR 1,500 ML BOTTLE IR ONE (09:46)
--- NOTE | 2022-02-14 09:51 | Procedure Note ---
Date of procedure: 02/14/22 Pre-op diagnosis: open tib-fib fracture with subsequent chronic osteomyelitis left leg/ankle Post-op diagnosis: same Procedure: Debridement and irrigation left leg with application wound matrix Procedure The patient was brought to the OR and placed on the OR table, following intubation the patient's left lower extremity was prepped and draped in usual sterile manner. A time-out procedure done to identify the patient and the leg to be operated on. The leg was elevated and the tourniquet inflated to 300mm mercury. the leg noted to have chronic openning over fracture site with exposed bone, this area was then debrided using combination of curettes and rongeurs, one distal screw removed with remaining screws appearing intact. Following copious irrigation the wound matrix was applied and secured with 3-0 Vicryl, followed adaptic and vasoline jelly, ABD pads and cast padding used to apply pressure onto wound matrix. Next the patient was extubated and taken to PACU in stable condition Anesthesia: GETA Surgeon: OSVALDO LUIS Estimated blood loss: minimal Pathology: list (bone and soft tissue sent to lab/microbiology) Specimen disposition: to lab Condition: stable Disposition: PACU
--- NOTE | 2022-02-14 12:01 | Post Anesthesia Evaluation ---
- Post Anesthesia Evaluation Patient Participated: Yes Airway Patent: Yes Stable Respiratory Function: Yes Nausea/Vomiting: No Temp > 96.8F: Yes Pain Manageable: Yes Adequeate Hydration: Yes Anesthesia Complications: No
[2022-02-14] MEDS: MORPHINE 2 MG/1 ML INJ IV PRN (15:43)
[2022-02-14] MEDS: MORPHINE 4 MG/1 ML INJ IV PRN (20:33)
[2022-02-15] MEDS: MORPHINE 4 MG/1 ML INJ IV PRN ×2 (01:19→06:06)
[2022-02-15 05:29] VITALS: BP 135/80
[2022-02-15] MEDS: MORPHINE 2 MG/1 ML INJ IV PRN (10:45)
--- NOTE | 2022-02-15 12:44 | Progress Note ---
Assessment and Plan s/p debridement left distal tibia doing well will dc to home, f/u in 1 wk Subjective Date of service: 02/15/22 Interval history: c/o incisional pain otherwise ok... Objective Vital signs: Vital Signs - 12hr 02/15/22 05:26 Temperature 99.4 F Pulse Rate 69 Respiratory 20 Rate Blood Pressure 135/80 O2 Sat by Pulse 95 Oximetry Incision: clean and dry Weight bearing status: as tolerated
== END 2022-02-15 15:01 | disposition home or self-care (01) ==
LOC: INTOOBSV 05:51 → 3A 05:51
PROVIDERS: ADMIT Orthopaedic Surgery; ATTEND Orthopaedic Surgery
DX: S82.202H Unspecified fracture of shaft of left tibia, subsequent encounter for open fracture type I or II with delayed healing (principal); S82.402H Unspecified fracture of shaft of left fibula, subsequent encounter for open fracture type I or II with delayed healing; M86.672 Other chronic osteomyelitis, left ankle and foot; T84.7XXA Infection and inflammatory reaction due to other internal orthopedic prosthetic devices, implants and grafts, initial encounter; S82.392 Other fracture of lower end of left tibia; Z79.899 Other long term (current) drug therapy; Z98.890 Other specified postprocedural states; Y92.89 Other specified places as the place of occurrence of the external cause; Y93.89 Activity, other specified; Y99.8 Other external cause status
CPT/HCPCS: 20680; 87076; 87116; 87186; 96374; 96375; 96376; 97162; G0378; G0379; J1030; J1100; J1170; J1885; J2001; J2270; J2405; J2704; J3010; J3490; J7120; Q4116; Q4140

== ENCOUNTER 2022-02-27 12:11 | Outpatient (CLI) | payer MEDICAID ==
--- NOTE | 2022-02-27 13:50 | XRay Report ---
RIGHT TIBIA-FIBULA 2 VIEW(S) INDICATION / CLINICAL INFORMATION: S82.871P Displaced pilon fracture of right tibia, subsequent encou nter for closed fracture with malunion COMPARISON: Right tibia 01/09/2022 FINDINGS: BONES / JOINT(S): Surgical hardware is stable, mild displacement of the tibial plate from the cortex remaining present superiorly. The comminuted fracture fragments of the lower tibia demonstrate no sig nificant change in position. There may be minimal interval increase in the amount of callus at the fr acture line of the fibula. No significant callus formation noted involving the lower tibia.. SOFT TISSUES: No significant abnormality. ADDITIONAL FINDINGS: None. IMPRESSION: 1. Stable postop appearance of the right lower leg superior aspect of the tibial plate slightly displ aced from the cortical surface, stable. 2. Minimal interval increase in callus along the fibula. No significant callus formation identified a long the fracture lines of the tibia. Signer Name: Viet Mariee II, MD Signed: 02/27/2022 1:45 PM Workstation Name: [id number]
== END 2022-02-27 12:12 | disposition home or self-care (01) ==
LOC: XRAY 12:11
PROVIDERS: ATTEND Orthopaedic Surgery
DX: S82.871P Displaced pilon fracture of right tibia, subsequent encounter for closed fracture with malunion (principal); X58.XXXD Exposure to other specified factors, subsequent encounter

== ENCOUNTER 2022-03-29 07:19 | Day surgery (SDC) | payer MEDICAID ==
[~2022-03-29 07:19] MED LIST changes: +ACETAMINOPHEN 500 MG TAB PO SCH; -BACTERIOSTATIC SODIUM CHLORIDE 0.9% 30 ML VIAL INFILTRATI ONE; +CELECOXIB 200 MG CAP PO NR; +GABAPENTIN 300 MG CAP PO NR; +LACTATED RINGERS 1,000 ML IV SCH; +MIDAZOLAM 2 MG/2 ML INJ IV NR; -ceFAZolin/STERILE WATER 2 GM/20 ML SYRINGE IV NR; +ceFAZolin/STERILE WATER 2 GM/20 ML SYRINGE IV SCH
[2022-03-29] MEDS ORDERED: ONDANSETRON 4 MG/2 ML INJ IV PRN (08:19)
[2022-03-29] MEDS ORDERED: oxyCODONE /ACETAMINOPHEN 5-325MG TAB PO PRN (08:19)
--- NOTE | 2022-03-29 08:19 | Anesthesia Consultation ---
Anesthesia Consult and Med Hx Date of service: 03/29/22 - Airway Anesthetic Teeth Evaluation: Good ROM Head & Neck: Adequate Mental/Hyoid Distance: Adequate Mallampati Class: Class II Intubation Access Assessment: Probably Good - Pre-Operative Health Status ASA Pre-Surgery Classification: ASA3 Proposed Anesthetic Plan: General - Pulmonary Hx Smoking: Yes Hx Respiratory Symptoms: No - Cardiovascular System Hx Hypertension: No - Central Nervous System Hx Seizures: Yes (will give home dose AED in preop) - Endocrine Hx Renal Disease: No Hx Liver Disease: No Hx Insulin Dependent Diabetes: No Hx Non-Insulin Dependent Diabetes: No Hx Thyroid Disease: No - Other Systems Hx Substance Use: Yes (THC) - Additional Comments Anesthesia Medical History Comments: No hx anesthetic complications.
--- NOTE | 2022-03-29 08:19 | Anesthesia Day of Surgery ---
Anesthesia Day of Surgery - Day of Surgery Patient Examined: Yes Patient H&P Reviewed: Yes Patient is NPO: Yes
[2022-03-29] MEDS ORDERED: levETIRAcetam 500 MG TAB PO SCH (08:20)
[2022-03-29] MEDS ORDERED: HYDROmorphone 1 MG/1 ML INJ ONE ×2 (11:27→12:19)
[2022-03-29] MEDS ORDERED: LIDOCAINE MPF (2%) 20 MG/1 ML VIAL 5 ML ONE (11:27)
[2022-03-29] MEDS ORDERED: propofoL 200 MG/20 ML VIAL IV ONE (11:27)
[2022-03-29] MEDS ORDERED: KETOROLAC 30 MG/1 ML INJ ONE ×2 (11:51→13:38)
[2022-03-29] MEDS ORDERED: BUPIVACAINE/PF (0.5%) 5 MG/1 ML 10 ML VIAL INFILTRATI ONE ×2 (11:52→12:09)
[2022-03-29] MEDS ORDERED: MORPHINE 10 MG/1 ML INJ ONE (11:52)
[2022-03-29] MEDS ORDERED: SODIUM CHLORIDE 0.9% 100 ML ONE (11:52)
[2022-03-29] MEDS ORDERED: SODIUM CHLORIDE 0.9% 50 ML ONE (11:53)
[2022-03-29] MEDS ORDERED: SODIUM CHLORIDE 0.9% 50 ML IVPB IV ONE (12:07)
[2022-03-29] MEDS ORDERED: SODIUM CHLORIDE 0.9% 100 ML IVPB IV ONE (12:08)
[2022-03-29] MEDS ORDERED: KETOROLAC 30 MG/1 ML INJ IV ONE (12:08)
[2022-03-29] MEDS ORDERED: MORPHINE 10 MG/1 ML INJ IM ONE (12:08)
[2022-03-29] MEDS ORDERED: SODIUM CHLORIDE 0.9% IRR 1,500 ML BOTTLE IR ONE (12:10)
[2022-03-29] MEDS ORDERED: NEOMY 40 MG/POLYMYXIN B 200,000 UNITS/ML (GU) AMPULE IR ONE ×2 (12:16→12:18)
[2022-03-29] MEDS ORDERED: SODIUM CHLORIDE 0.9% IRRIG SOLN 2000 ML IR ONE (12:18)
[2022-03-29] MEDS ORDERED: dexAMETHasone 20 MG/5 ML VIAL ONE (12:23)
--- NOTE | 2022-03-29 12:54 | Procedure Note ---
Date of procedure: 03/29/22 Pre-op diagnosis: Right open tib-fib fracture with secondary chronic osteomyelitis Post-op diagnosis: same Procedure: Removal of hardware right tibia and fibula Procedure The patient was brought to the OR placed on the OR table in supine position following induction with anesthesia the patient's right lower extremity was prepped and draped in the usual sterile manner. A timeout procedure was done to identify the patient and the correct operative site. The leg was then elevated followed by inflation of the pneumatic tourniquet to 300 mmHg. Utilizing previous incision the scar this was then taken down sharply through skin subcu to the hardware using C arm fluoroscopy we were able to identify both the proximal and distal extent of the tibial plate next screws were removed without any difficulty patient was noted to have purulent material more distally using a combination of curette and rongeurs the bone was debrided of the soft tissue next attention was turned to the lateral plate again using utilizing the previous incision this was again taken down sharply through skin and subcu the fibula plate was identified that did not appear to be any evidence of infection in this location again utilizing C-arm fluoroscopy the plate was removed again curette and rongeurs were used to clean up the periosteal tissues next antibiotic solution was used to irrigate both wounds x-rays taken intraoperatively showed no obvious fracture patient leg appeared stable following this the wound was then closed in a standard routine manner postoperative dressings were applied he was then taken to postanesthesia recovery in a stable condition Anesthesia: MABLEA Surgeon: OSVALDO LUIS (Poli Castro, 1st assist) Estimated blood loss: minimal Pathology: none Condition: stable Disposition: PACU
[2022-03-29] MEDS ORDERED: ONDANSETRON 4 MG/2 ML INJ ONE (13:43)
[2022-03-29] MEDS: HYDROmorphone 0.5 MG/0.5 ML INJ IV PRN ×2 (14:25→16:09)
--- NOTE | 2022-03-29 15:34 | XRay Report ---
INTRAOPERATIVE FLUOROSCOPY: RIGHT ANKLE INDICATION / CLINICAL INFORMATION: INFECTED HARDWARE RIGHT TIBIA. COMPARISON: [id number] TECHNIQUE: Intraoperative spot images were obtained during the procedure. FINDINGS / IMPRESSION: Removal of internal fixation hardware from the distal right tibia and fibula. Fluoroscopy Time: 0.1 minutes. Fluoroscopy Images: 2. Signer Name: Rose Elliott MD Signed: 03/29/2022 3:29 PM Workstation Name: [id number]
[2022-03-29 20:10] VITALS: BP 122/78
== END 2022-03-29 17:15 | disposition home or self-care (01) ==
LOC: OR 07:19
PROVIDERS: ATTEND Orthopaedic Surgery
DX: T84.7XXA Infection and inflammatory reaction due to other internal orthopedic prosthetic devices, implants and grafts, initial encounter (principal); S82.871P Displaced pilon fracture of right tibia, subsequent encounter for closed fracture with malunion; M86.8X6 Other osteomyelitis, lower leg; G40.909 Epilepsy, unspecified, not intractable, without status epilepticus; G62.9 Polyneuropathy, unspecified; F17.210 Nicotine dependence, cigarettes, uncomplicated; Z91.013 Allergy to seafood; Z79.899 Other long term (current) drug therapy; Z91.81 History of falling; Z98.890 Other specified postprocedural states; Y92.89 Other specified places as the place of occurrence of the external cause; X58.XXXD Exposure to other specified factors, subsequent encounter; Y82.8 Other medical devices associated with adverse incidents
CPT/HCPCS: 20680; 73600; J0690; J1100; J1170; J1885; J2250; J2270; J2405; J2704; J3490; J7120

== ENCOUNTER 2022-04-11 10:14 | Day surgery (SDC) | payer MEDICAID ==
[~2022-04-11 10:14] MED LIST changes: -ceFAZolin/STERILE WATER 2 GM/20 ML SYRINGE IV SCH; +ceFAZolin/Water 2 GM/20 ML 2 GM/20 ML SYRINGE IV NR; +levETIRAcetam 500 MG TAB PO PRN
--- NOTE | 2022-04-11 11:23 | Anesthesia Day of Surgery ---
Anesthesia Day of Surgery - Day of Surgery Patient Examined: Yes Patient H&P Reviewed: Yes Patient is NPO: Yes
--- NOTE | 2022-04-11 11:23 | Anesthesia Consultation ---
Anesthesia Consult and Med Hx Date of service: 04/11/22 - Airway Anesthetic Teeth Evaluation: Good ROM Head & Neck: Adequate Mental/Hyoid Distance: Adequate Mallampati Class: Class II Intubation Access Assessment: Probably Good (previous LMA 4) - Pre-Operative Health Status ASA Pre-Surgery Classification: ASA2 Proposed Anesthetic Plan: General - Pulmonary Hx Smoking: Yes (cigars, THC) Hx Respiratory Symptoms: No - Cardiovascular System Hx Hypertension: No - Central Nervous System Hx Seizures: Yes (took keppra this morning) - Endocrine Hx Renal Disease: No Hx Liver Disease: No Hx Insulin Dependent Diabetes: No Hx Non-Insulin Dependent Diabetes: No Hx Thyroid Disease: No - Other Systems Hx Substance Use: Yes (THC) - Additional Comments Anesthesia Medical History Comments: Has had multiple anesthetics at [facility] for similar procedure without anesthetic complications.
[2022-04-11] MEDS ORDERED: oxyCODONE /ACETAMINOPHEN 5-325MG TAB PO PRN (11:24)
[2022-04-11] MEDS ORDERED: LIDOCAINE MPF (2%) 20 MG/1 ML VIAL 5 ML ONE (12:55)
[2022-04-11] MEDS ORDERED: propofoL 200 MG/20 ML VIAL IV ONE (12:56)
[2022-04-11] MEDS ORDERED: KETAMINE/STERILE WATER 50 MG/ML SYRINGE ONE (13:03)
[2022-04-11] MEDS ORDERED: fentaNYL 100 MCG/2 ML INJ ONE (13:03)
[2022-04-11] MEDS ORDERED: ONDANSETRON 4 MG/2 ML INJ ONE (13:04)
[2022-04-11] MEDS ORDERED: BUPIVACAINE/PF (0.5%) 5 MG/1 ML 10 ML VIAL INFILTRATI ONE ×2 (13:41→13:48)
[2022-04-11] MEDS ORDERED: dexAMETHasone 20 MG/5 ML VIAL ONE (14:20)
[2022-04-11] MEDS ORDERED: KETOROLAC 30 MG/1 ML INJ ONE (14:20)
--- NOTE | 2022-04-11 14:29 | Procedure Note ---
Date of procedure: 04/11/22 Pre-op diagnosis: Recurrent fracture nonunion right tib-fib fracture Post-op diagnosis: same Procedure: Application of external fixator right leg Procedure The patient was brought to the OR placed on the OR table in supine position following induction intubation anesthesia the patient's right lower extremity was prepped and draped in the usual sterile manner. A timeout procedure was done to identify the patient and the correct operative site. Utilizing the C arm a proximal Steinmann pin was inserted bicortically through the tibia next a second Steinmann pin was inserted just proximal to the first using a pin guide this was then followed by placement of our 2 distal Steinmann pins into the tibia fragment both done via C arm fluoroscopy next the bob connected both proximally and distally followed by tightening of the bolts once alignment confirmed via fluoroscopy. Routine post op dressings applied. Taken to PACU in stable condition. Anesthesia: GETA Surgeon: OSVALDO ULIS (Poli Castro, 1st assist) Estimated blood loss: minimal Pathology: none Condition: stable Disposition: PACU
[2022-04-11] MEDS: HYDROmorphone 0.5 MG/0.5 ML INJ IV PRN ×4 (14:38→15:17)
[2022-04-11] MEDS ORDERED: HEPARIN 10,000 UNITS/10 ML VIAL IV ONE (15:13)
--- NOTE | 2022-04-11 15:29 | XRay Report ---
INTRAOPERATIVE FLUOROSCOPY: TIB-FIB INDICATION / CLINICAL INFORMATION: OPEN FRACTURE RIGHT TIB/FIB. TECHNIQUE: Intraoperative spot images were obtained during the procedure. FINDINGS: Intraoperative images from open reduction external fixation of distal tibia and fibular fractures. Please refer to operative report for further information. Fluoroscopy Time: 0.3 minutes . Fluoroscopy Images: 2. Signer Name: Scott Collins MD Signed: 04/11/2022 3:25 PM Workstation Name: [email or web address]
[2022-04-11 15:53] VITALS: BP 126/90
== END 2022-04-11 15:45 | disposition home or self-care (01) ==
LOC: OR 10:14
PROVIDERS: ATTEND Orthopaedic Surgery
DX: S82.871K Displaced pilon fracture of right tibia, subsequent encounter for closed fracture with nonunion (principal); S82.491K Other fracture of shaft of right fibula, subsequent encounter for closed fracture with nonunion; T84.7XXA Infection and inflammatory reaction due to other internal orthopedic prosthetic devices, implants and grafts, initial encounter; F17.210 Nicotine dependence, cigarettes, uncomplicated; G40.909 Epilepsy, unspecified, not intractable, without status epilepticus; G47.30 Sleep apnea, unspecified; M19.90 Unspecified osteoarthritis, unspecified site; Z72.89 Other problems related to lifestyle; Z91.013 Allergy to seafood; Z79.899 Other long term (current) drug therapy; Z98.890 Other specified postprocedural states; Z91.81 History of falling; X58.XXXD Exposure to other specified factors, subsequent encounter; Y82.8 Other medical devices associated with adverse incidents; Y92.89 Other specified places as the place of occurrence of the external cause
CPT/HCPCS: 20690; 73600; J0690; J1100; J1170; J1642; J1885; J2250; J2405; J2704; J3010; J3490; J7120

== ENCOUNTER 2022-04-18 03:09 | Emergency (ER) | payer MEDICAID ==
[2022-04-18 03:25] VITALS: BP 109/75
== END 2022-04-18 18:06 | disposition left against medical advice (07) ==
LOC: ED 03:09
DX: M79.601 Pain in right arm (principal); Z53.21 Procedure and treatment not carried out due to patient leaving prior to being seen by health care provider

== ENCOUNTER 2022-05-10 09:24 | Outpatient (CLI) | payer MEDICAID ==
--- NOTE | 2022-05-10 11:05 | XRay Report ---
RIGHT TIBIA FIBULA 2 VIEWS 0930 INDICATION: S82.87P DISPLACED PILON FRACTURE OF RIGHT TIBIA COMPARISON: 02/27/2022 FINDINGS: Previous plate and screws have been removed from the distal fracture sites of the tibia and fibula. New large screws are seen in the mid tibial shaft and in the distal tibial metaphysis. At th e fracture sites there is continued nonunion other is mild callus formation. There is now moderate la teral angulation and displacement as well as anterior angulation at both sites and anterior displacem ent with overriding of the fibular site. No proximal fractures are seen. No dislocation is obvious. Signer Name: Hamzah Brown MD Signed: 05/10/2022 11:01 AM Workstation Name: [email or web address]
== END 2022-05-10 09:25 | disposition home or self-care (01) ==
LOC: XRAY 09:24
PROVIDERS: ATTEND Orthopaedic Surgery
DX: S82.871P Displaced pilon fracture of right tibia, subsequent encounter for closed fracture with malunion (principal); X58.XXXD Exposure to other specified factors, subsequent encounter

== ENCOUNTER 2022-07-02 12:07 | Outpatient (CLI) | payer MEDICAID ==
--- NOTE | 2022-07-02 15:26 | XRay Report ---
RIGHT TIBIA AND FIBULA 2 VIEWS INDICATION: PAIN IN RIGHT ANKLE.. COMPARISON: 05/10/2022 IMPRESSION: Limited exam with external fixator spanning the complex, comminuted and angulated fractu res of the distal tibia and fibula shafts. There is significant anterior angulation at both fracture sites but this is unchanged since the previous exam. There is increased calcified callus since the pr evious exam consistent with mild interval healing although fracture lines remain evident. No new acu te osseous abnormality is detected. Signer Name: Reggie Titus Jr, MD Signed: 07/02/2022 3:21 PM Workstation Name: [id number]
== END 2022-07-02 12:08 | disposition home or self-care (01) ==
LOC: XRAY 12:07
PROVIDERS: ATTEND Orthopaedic Surgery
DX: S82.871P Displaced pilon fracture of right tibia, subsequent encounter for closed fracture with malunion (principal); X58.XXXD Exposure to other specified factors, subsequent encounter